=== PATIENT | male | born 1940 | race Caucasian/White ===

== ENCOUNTER 2017-01-29 13:19 | Outpatient (CLI) | payer MEDICARE, OTHER ==
--- NOTE | 2017-01-29 17:02 | XRAY Report ---
LEFT HIP AND PELVIS: 01/29/2017 COMPARISON STUDY: Hip 12/27/2014. INDICATION: Chronic left hip pain. TECHNIQUE: Three views of the pelvis and left hip. FINDINGS: Normal alignment. No evidence of acute fracture. No appreciable degenerative changes. IMPRESSION: NEGATIVE LEFT HIP. JOB #: [id number] EXT JOB #:[id number]
== END 2017-01-29 13:20 | disposition home or self-care (01) ==
LOC: DI 13:19
PROVIDERS: ATTEND Family Medicine
DX: M25.552 Pain in left hip (principal)

== ENCOUNTER 2017-05-31 11:48 | Outpatient (CLI) | payer MEDICARE | END 2017-05-31 11:49 | disposition critical access hospital (66) | LOC: EMS 11:48 | PROVIDERS: ATTEND Surgery | DX: R55 Syncope and collapse (principal); R42 Dizziness and giddiness; R11.2 Nausea with vomiting, unspecified; R53.1 Weakness | CPT/HCPCS: A0425; A0427 ==

== ENCOUNTER 2017-05-31 12:01 | Emergency (ER) | payer MEDICARE ==
[2017-05-31 13:07] VITALS: BP 138/80
--- NOTE | 2017-05-31 13:12 | ED Physician Documentation ---
PD HPI SYNCOPE - Stated complaint Stated Complaint: Syncope - Chief complaint Chief Complaint: Neuro - History obtained from History obtained from: Patient - History of Present Illness Witnessed: Witnessed Timing - onset: Today Duration: Seconds Preceding symptoms: Light headed. No: Headache, Chest pain Associated symptoms: Headache. No: Chest pain, Nausea / vomiting, Abdominal pain Contributing factors: Just stood up (he felt okay wakening and getting up, doing activities. he was out working in [employer] and when he stood up from working bending over, he felt lightheaded and then fell/fainted forward.) Injury occurred: Fell, Head injury, Neck injury, Other (chest pain to palpation) Similar symptoms before: Has not had sx before Recently seen: Not recently seen Review of Systems Constitutional: denies: Fever, Chills Nose: denies: Rhinorrhea / runny nose, Congestion Throat: denies: Sore throat Cardiac: reports: Chest pain / pressure (after falling, anteriorly). denies: Palpitations Respiratory: denies: Cough GI: denies: Abdominal Pain, Nausea, Vomiting Musculoskeletal: reports: Neck pain. denies: Back pain, Extremity pain Neurologic: reports: Headache PD PAST MEDICAL HISTORY - Past Medical History Cardiovascular: Hypertension, High cholesterol, Coronary artery disease Respiratory: Pneumonia Neuro: Fainting, Other Endocrine/Autoimmune: None GI: GERD : Retention, Frequency HEENT: Chronic vision loss Psych: Bipolar disorder Musculoskeletal: Osteoarthritis Derm: Other - Past Surgical History Past Surgical History: Yes General: Colonoscopy Ortho: Other Cardiovascular: CABG HEENT: Tonsil/Adenoidectomy - Present Medications Home Medications: Ambulatory Orders Medication Instructions Recorded Confirmed Aspirin Chewable [[place] Branden 81 mg PO DAILY 05/02/13 01/12/14 Aspirin] Atorvastatin [Lovastatin] 40 mg PO DAILY 05/02/13 01/12/14 Folic Acid 1 mg PO DAILY 05/02/13 01/12/14 Lisinopril [Zestril] 10 mg PO DAILY 05/02/13 01/12/14 Omeprazole [PriLOSEC] 20 mg PO DAILY 05/02/13 01/12/14 Tamsulosin [Flomax] 0.4 mg PO DAILY 05/02/13 01/12/14 Escitalopram Oxalate 20 mg PO DAILY 11/06/13 01/12/14 Ibuprofen 600 mg PO BID #20 tablet 11/06/13 01/12/14 - Allergies Allergies/Adverse Reactions: Allergies Allergy/AdvReac Type Severity Reaction Status Date / Time codeine Allergy Unknown Verified 05/31/17 12:12 - Social History Does the pt smoke?: No Smoking Status: Never smoker Does the pt drink ETOH?: Yes Does the pt have substance abuse?: No Substance Use and Type: Marijuana - Immunizations Immunizations are current?: Yes - POLST Patient has POLST: No PD ED PE NORMAL - Vitals Vital signs reviewed: Yes - General General: Alert and oriented X 3, No acute distress - HEENT HEENT: PERRL - Neck Neck: Supple, no meningeal sign - Cardiac Cardiac: RRR, No murmur - Respiratory Respiratory: Clear bilaterally - Abdomen Abdomen: Normal bowel sounds, Soft, Non tender, Non distended - Back Back: No CVA TTP, No spinal TTP - Derm Derm: Warm and dry - Extremities Extremities: No deformity, No tenderness to palpate, Normal ROM s pain - Neuro Neuro: Alert and oriented X 3, No motor deficit, Normal speech Eye Opening: Spontaneous Motor: Obeys Commands Verbal: Oriented GCS Score: 15 - Psych Psych: Normal mood, Normal affect Results - Vitals Vitals: Oxygen O2 Source Room air - Labs Labs: Laboratory Tests 05/31/17 05/31/17 05/31/17 14:41 14:41 14:41 WBC 9.9 RBC 4.44 L Hgb 13.6 L Hct 40.0 L MCV 90.0 MCH 30.7 MCHC 34.1 RDW 12.8 Plt Count 186 MPV 8.6 Neut # 8.2 H Lymph # 1.0 L [place] # 0.6 Eos # 0.0 Baso # 0.0 Absolute Nucleated RBC 0.00 Nucleated RBC % 0.0 Sodium 139 Potassium 4.0 Chloride 110 Carbon Dioxide 23 Anion Gap 6.0 BUN 15 Creatinine 1.4 H Estimated GFR (MDRD) 49 L Glucose 120 H Calcium 9.1 Magnesium 2.0 Total Bilirubin 0.9 AST 21 ALT 15 Alkaline Phosphatase 81 Troponin I < 0.04 Total Protein 6.2 L Albumin 3.8 Globulin 2.4 Albumin/Globulin Ratio 1.6 Lipase 43 - Rads (name of study) head and neck CTs Radiology: Prelim report reviewed (no acute fracture/abnormal) cest xray Radiology: Prelim report reviewed (no obvious deformity nor wilson injury. ) PD MEDICAL DECISION MAKING - ED course Complexity details: reviewed results, considered differential, d/w patient, d/w family Departure - Departure Disposition: 01 Home, Self Care Clinical Impression: Episode of syncope Qualifiers: Syncope type: unspecified Qualified Code(s): R55 - Syncope and collapse Head contusion Qualifiers: Encounter type: initial encounter Contusion of head detail: scalp Qualified Code(s): S00.03XA - Contusion of scalp, initial encounter Neck strain Qualifiers: Encounter type: initial encounter Qualified Code(s): S16.1XXA - Strain of muscle, fascia and tendon at neck level, initial encounter Condition: Stable Record reviewed to determine appropriate education?: Yes Instructions: ED Sprain Strain Neck, ED Fainting Unkn Cause Comments: There are no signs of obvious bad processes going on at this time. Presume you had a transient drop in blood pressure when he stood up in the garden. Drink lots of fluids and continue usual medications. Tylenol or ibuprofen if needed for pains in the neck. Recheck if recurrent episodes or other symptoms. Discharge Date/Time: 05/31/17 15:45
[2017-05-31] MEDS ORDERED: KETOROLAC 60 MG/2 ML VIAL IVP STA (13:30)
[2017-05-31] MEDS ORDERED: SODIUM CHLORIDE 0.9% 500 ML IV ONE (13:30)
--- NOTE | 2017-05-31 14:31 | CT Report ---
EXAM: CT HEAD EXAM DATE: 05/31/2017 02:14 PM. CLINICAL HISTORY: Fall and struck head. COMPARISON: 11/23/2013. TECHNIQUE: Multiaxial CT images were obtained from the foramen magnum to the vertex. Reformats: Coron al. IV contrast: None. In accordance with CT protocol optimization, one or more of the following dose reduction techniques w ere utilized for this exam: automated exposure control, adjustment of mA and/or KV based on patient s ize, or use of iterative reconstructive technique. FINDINGS: Parenchyma: No intraparenchymal hemorrhage. No evidence of mass, midline shift, or CT findings of inf arction. Maldonado-white differentiation is distinct. Punctate focus of hyperdensity in the mario is unchan ged. Extraaxial Spaces: Normal for age. No subdural or epidural collections identified. Ventricles: Normal in size and position. Sinuses and Orbits: Imaged paranasal sinuses, orbits, and mastoids show no significant abnormality. Bones: No evidence of fracture or calvarial defect. Other: None. IMPRESSION: No acute intracranial abnormality. [facility] Referring Provider Line: [phone] SITE ID: [id number]
--- NOTE | 2017-05-31 14:38 | CT Report ---
EXAM: CT CERVICAL SPINE WITHOUT CONTRAST DATE: 05/31/2017 02:19 PM. HISTORY: Fell with neck pain. COMPARISONS: 10/24/2007. TECHNIQUE: Thin-section axial images were acquired of the cervical spine without contrast. Post-proce ssing: Coronal and sagittal reformats. Other: None. In accordance with CT protocol optimization, one or more of the following dose reduction techniques w ere utilized for this exam: automated exposure control, adjustment of mA and/or KV based on patient s ize, or use of iterative reconstructive technique. FINDINGS: Alignment: No scoliosis or spondylolisthesis. Bones: No fracture or bone lesion. Interspace Levels/Facets: Severe C4-C5, C5-C6 and C6-C7 disk degeneration with prominent endplate osteophyte formation resultin g in at least moderate spinal canal stenosis at these levels. Severe neural foraminal stenosis at C4- C5 and C5-C6. Prominent anterior osteophytes with evidence of ankylosis. Musculature: Mild fatty atrophy. Other: The paravertebral and prevertebral soft tissues are unremarkable. The lung apices are clear. IMPRESSION: 1. No acute fracture identified. 2. Severe C4-C5, C5-C6 and C6-C7 degenerative changes with prominent osteophytes and ankylosis. MRI c ould be considered if there is high suspicion for occult fracture or new neurologic symptoms. [facility] Referring Provider Line: [phone] SITE ID: [id number]
--- NOTE | 2017-05-31 14:39 | XRAY Report ---
EXAM: CHEST RADIOGRAPHY EXAM DATE: 05/31/2017 02:26 PM. CLINICAL HISTORY: Chest pain left sided. Cough. COMPARISON: 06/20/2014. TECHNIQUE: 2 views. FINDINGS: Lungs/Pleura: No focal opacities evident. No pleural effusion. Resolution of left pleural effusion se en before. No pneumothorax. Normal volumes. Mediastinum: Heart and mediastinal contours are unremarkable. Mild aortic arch calcification. Sternot dawson wires, as before. 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 IMPRESSION: 1. Uncertain clear. 2. Heart size normal. Prior CABG. [facility] Referring Provider Line: [phone] SITE ID: [id number]
[2017-05-31 14:53] LABS: BASOPHILS % (AUTO) 0.3 %; EOSINOPHILS % (AUTO) 0.3 %; HGB - HEMOGLOBIN 13.6 g/dL (14.0-18.0); LYMPHOCYTES % (AUTO) 10.3 %; MEAN CORPUSCULAR HEMOGLOBIN 30.7 pg (27.0-31.0); MEAN CORPUSCULAR HGB CONC 34.1 g/dL (32.0-36.0); MEAN PLATELET VOLUME 8.6 fL (7.4-11.4); MONOCYTES # (AUTO) 0.6 10^3/uL (0.0-1.0); MONOCYTES % (AUTO) 6.3 %; NEUTROPHILS # (AUTO) 8.2 10^3/uL (1.5-6.6); NEUTROPHILS % (AUTO) 82.8 %; PLT - PLATELET COUNT 186 10^3/uL (130-450); RED BLOOD COUNT 4.44 10^6/uL (4.70-6.10); RED CELL DISTRIBUTION WIDTH 12.8 % (12.0-15.0); WHITE BLOOD COUNT 9.9 x10^3/uL (4.8-10.8)
[2017-05-31 15:02] LABS: ALBUMIN 3.8 g/dL (3.2-5.5); ALBUMIN/GLOBULIN RATIO 1.6 (1.0-2.2); BILIRUBIN,TOTAL 0.9 mg/dL (0.2-1.0); CALCIUM 9.1 mg/dL (8.5-10.3); CREATININE 1.4 mg/dL (0.6-1.2); TOTAL PROTEIN 6.2 g/dL (6.7-8.2)
== END 2017-05-31 15:45 | disposition home or self-care (01) ==
LOC: EDUNIT# → SUPCPDRO 12:01 → ED 12:01
DX: R55 Syncope and collapse (principal); S00.03XA Contusion of scalp, initial encounter; S16.1XXA Strain of muscle, fascia and tendon at neck level, initial encounter; I10 Essential (primary) hypertension; I25.10 Atherosclerotic heart disease of native coronary artery without angina pectoris; Z79.82 Long term (current) use of aspirin; E78.00 Pure hypercholesterolemia, unspecified; Z95.1 Presence of aortocoronary bypass graft; W18.39XA Other fall on same level, initial encounter; Y93.H2 Activity, gardening and landscaping
CPT/HCPCS: 36415; 70450; 71046; 72125; 80053; 83690; 83735; 84484; 85025; 93005; 96374; 99284

== ENCOUNTER 2017-09-29 08:25 | Outpatient (CLI) | payer MEDICARE ==
--- NOTE | 2017-09-29 13:55 | Ultrasound Report ---
Procedure Date: 09/29/2017 Accession Number: [id number] / [id number] Procedure: US - Carotid Doppler Complete CPT Code: FULL RESULT: EXAM: BILATERAL CAROTID AND VERTEBRAL ARTERY DUPLEX DOPPLER ULTRASOUND: EXAM DATE: 09/29/2017 09:23 AM CLINICAL HISTORY: Dizziness, B sensorineural hearing loss, cerebrovascular insufficiency. COMPARISON: 10/28/2010. TECHNIQUE: Grayscale imaging, color Doppler, and duplex spectral Doppler were used to evaluate the carotid and vertebral arteries bilaterally. Static images were obtained. FINDINGS: No significant plaque is identified in the right or left common or internal carotid arteries. Normal antegrade flow is present in bilateral vertebral arteries. VELOCITIES (cm/sec): Right: RCCA Prox: PSV 72 cm/sec. RCCA Dist: PSV 49 cm/sec, EDV 10 cm/sec. RECA: PSV 73 cm/sec. R Bulb: PSV 37 cm/sec, EDV 8 cm/sec, ICA/CCA ratio 0.76. GLENIS Prox: PSV 56 cm/sec, EDV 14 cm/sec, ICA/CCA ratio 1.14. GLENIS Mid: PSV 45 cm/sec, EDV 11 cm/sec, ICA/CCA ratio 0.92. GLENIS Dist: PSV 62 cm/sec, EDV 21 cm/sec, ICA/CCA ratio 1.27. RVA: PSV 28 cm/sec. RVA flow direction: Antegrade. Left: LCCA Prox: PSV 72 cm/sec. LCCA Dist: PSV 43 cm/sec, EDV 9 cm/sec. LECA: PSV 94 cm/sec. L Bulb: PSV 39 cm/sec, EDV 8 cm/sec, ICA/CCA ratio 0.91. LICA Prox: PSV 36 cm/sec, EDV 10 cm/sec, ICA/CCA ratio 0.84. LICA Mid: PSV 59 cm/sec, EDV 16 cm/sec, ICA/CCA ratio 1.37. LICA Dist: PSV 60 cm/sec, EDV 20 cm/sec, ICA/CCA ratio 1.40. LVA: PSV 45 cm/sec. LVA flow direction: Antegrade. ICA diameter stenosis: Right: <50% by velocity and <70% by NASCET criteria. Left: <50% by velocity and <70% by NASCET criteria. IMPRESSION: 1. No significant bilateral carotid artery plaquing. 2. In the right carotid artery there are no elevated carotid artery velocities to suggest hemodynamically significant stenosis. 3. In the left carotid artery there are no elevated carotid artery velocities to suggest hemodynamically significant stenosis. 4. Normal antegrade flow is present in bilateral vertebral arteries. General Recommendations: Stenosis =50% ICA - Follow-up ultrasound 6-12 months Stenosis <50% ICA - High Risk Patient with plaque - Follow-up ultrasound 1-2 years Normal Study but High Risk Patient - Follow-up ultrasound 3-5 years Management recommendations and diagnostic criteria are based on current IAC endorsed standards in Carotid Artery Stenosis: Grayscale and Doppler Ultrasound Diagnosis. Validated velocity measurements with angiographic measurements and velocity criteria are extrapolated from diameter data as defined by the Society of Radiologists in Ultrasound Consensus Conference Radiology 2003; 229;340-346. [facility]
--- NOTE | 2017-09-29 15:59 | MRI Report ---
Procedure Date: 09/29/2017 Accession Number: [id number] / [id number] Procedure: MRI - Angio Brain W/O (MRA) CPT Code: FULL RESULT: EXAM MRA BRAIN EXAM DATE: 09/29/2017 10:55 AM. CLINICAL HISTORY: Dizziness, B sensorineural hearing loss, cerebrovascular insufficiency. COMPARISON: CT head 05/31/2017. Carotid ultrasound report 10/28/2010. TECHNIQUE: Multiplanar, multisequence MRA sequences of the brain were performed. Other: None. Post-processing: Multiplanar 3D MIP reconstructions. IV Contrast: None. FINDINGS: No hemodynamically significant stenosis is seen in the posterior circulation. Artifact limits assessment of the anterior circulation. No hemodynamically significant stenosis is definitely identified in the anterior circulation. No outpouching of flow-related enhancement is seen to suggest an aneurysm. IMPRESSION: 1. No hemodynamically significant stenosis is seen in the posterior circulation. 2. Accounting for artifact, no definite hemodynamically significant stenosis is present in the anterior circulation [facility]
== END 2017-09-29 08:26 | disposition home or self-care (01) ==
LOC: DI 08:25
PROVIDERS: ATTEND Otolaryngology
DX: R42 Dizziness and giddiness (principal); H90.3 Sensorineural hearing loss, bilateral; I67.81 Acute cerebrovascular insufficiency
CPT/HCPCS: 70544; 93880

== ENCOUNTER 2018-11-16 09:39 | Outpatient (CLI) | payer MEDICARE ==
[2018-11-16 10:09] LABS: BASOPHILS % (AUTO) 0.2 %; EOSINOPHILS # (AUTO) 0.1 10^3/uL (0.0-0.7); HGB - HEMOGLOBIN 12.8 g/dL (14.0-18.0); LYMPHOCYTES # (AUTO) 1.4 10^3/uL (1.5-3.5); LYMPHOCYTES % (AUTO) 22.8 %; MEAN CORPUSCULAR HEMOGLOBIN 29.8 pg (27.0-31.0); MEAN CORPUSCULAR HGB CONC 31.8 g/dL (32.0-36.0); MEAN CORPUSCULAR VOLUME 93.7 fL (80.0-94.0); MEAN PLATELET VOLUME 10.3 fL (7.4-11.4); MONOCYTES # (AUTO) 0.6 10^3/uL (0.0-1.0); MONOCYTES % (AUTO) 9.8 %; NEUTROPHILS # (AUTO) 3.9 10^3/uL (1.5-6.6); PLT - PLATELET COUNT 161 10^3/uL (130-450); RED CELL DISTRIBUTION WIDTH 13.4 % (12.0-15.0)
[2018-11-16 10:20] LABS: ALBUMIN 4.1 g/dL (3.2-5.5); BILIRUBIN,DIRECT 0.1 mg/dL (0.1-0.5); BILIRUBIN,TOTAL 0.8 mg/dL (0.2-1.0); CREATININE 1.7 mg/dL (0.6-1.2); TOTAL PROTEIN 6.8 g/dL (6.7-8.2)
[2018-11-16 10:21] LABS: CHOL/HDL RATIO 2.7 (<5.0); CHOLESTEROL 143 mg/dL; HDL CHOLESTEROL 53 mg/dL; LDL CHOLESTEROL,CALCULATED 80 mg/dL; LDL/HDL RATIO 1.5 (<3.6); VLDL CHOLESTEROL 10 mg/dL
== END 2018-11-16 09:40 | disposition home or self-care (01) ==
LOC: LAB 09:39
PROVIDERS: ATTEND Internal Medicine Cardiovascular Disease
DX: B35.1 Tinea unguium (principal); I10 Essential (primary) hypertension
CPT/HCPCS: 36415; 80061; 80076; 82565; 83721; 84520; 85025

== ENCOUNTER 2018-12-16 08:00 | Outpatient (CLI) | payer MEDICARE | END 2018-12-16 08:01 | disposition home or self-care (01) | LOC: LAB.N 08:00 | PROVIDERS: ATTEND Family Medicine Sports Medicine | DX: Z53.9 Procedure and treatment not carried out, unspecified reason (principal) | CPT/HCPCS: 36415; 85025 ==

== ENCOUNTER 2018-12-19 08:00 | Outpatient (CLI) | payer MEDICARE ==
[2018-12-19 11:50] LABS: BASOPHILS % (AUTO) 0.7 %; EOSINOPHILS # (AUTO) 0.1 10^3/uL (0.0-0.7); EOSINOPHILS % (AUTO) 2.3 %; HGB - HEMOGLOBIN 13.1 g/dL (14.0-18.0); LYMPHOCYTES % (AUTO) 34.5 %; MEAN CORPUSCULAR HGB CONC 31.2 g/dL (32.0-36.0); MEAN CORPUSCULAR VOLUME 93.1 fL (80.0-94.0); MONOCYTES # (AUTO) 0.5 10^3/uL (0.0-1.0); MONOCYTES % (AUTO) 9.6 %; NEUTROPHILS % (AUTO) 52.5 %; PLT - PLATELET COUNT 196 10^3/uL (130-450); RED BLOOD COUNT 4.51 10^6/uL (4.70-6.10); RED CELL DISTRIBUTION WIDTH 13.2 % (12.0-15.0); WHITE BLOOD COUNT 5.7 x10^3/uL (4.8-10.8)
[2018-12-19 12:18] LABS: ALBUMIN 4.1 g/dL (3.2-5.5); CALCIUM 9.1 mg/dL (8.5-10.3); CREATININE 1.8 mg/dL (0.6-1.2); PHOSPHORUS 3.2 mg/dL (2.5-4.6)
== END 2018-12-19 23:59 | disposition home or self-care (01) ==
LOC: LAB.N 08:00
PROVIDERS: ATTEND Family Medicine Sports Medicine
DX: N18.3 Chronic kidney disease, stage 3 (moderate) (principal)
CPT/HCPCS: 36415; 80069; 85025

== ENCOUNTER 2019-04-25 08:22 | Outpatient (CLI) | payer MEDICARE ==
[2019-04-25 09:09] LABS: ALBUMIN 4.2 g/dL (3.2-5.5); ALBUMIN/GLOBULIN RATIO 1.6 (1.0-2.2); BILIRUBIN,TOTAL 0.8 mg/dL (0.2-1.0); CALCIUM 8.9 mg/dL (8.5-10.3); CREATININE 1.7 mg/dL (0.6-1.2); TOTAL PROTEIN 6.9 g/dL (6.7-8.2)
== END 2019-04-25 08:23 | disposition home or self-care (01) ==
LOC: LAB 08:22
PROVIDERS: ATTEND Internal Medicine
DX: I25.10 Atherosclerotic heart disease of native coronary artery without angina pectoris (principal); E21.3 Hyperparathyroidism, unspecified
CPT/HCPCS: 36415; 80053

== ENCOUNTER 2019-05-31 10:00 | Outpatient (CLI) | payer MEDICARE ==
--- NOTE | 2019-06-01 14:38 | Ultrasound Report ---
Reason: PROTEINURIA,CHRONIC KIDNEY DISEASY Procedure Date: 05/31/2019 Accession Number: [id number] / [id number] Procedure: US - Retroperitoneal CPT Code: Final Report FULL RESULT: EXAM: RENAL ULTRASOUND EXAM DATE: 05/31/2019 10:39 AM. CLINICAL HISTORY: PROTEINURIA, CHRONIC KIDNEY DISEASE. COMPARISON: None. TECHNIQUE: Real-time scanning was performed with static images obtained. FINDINGS: Diffusely echogenic bilateral renal parenchyma without evidence for focal mass. Right Kidney: 11.8 x 5.3 x 4.2 cm. No stones, contour-deforming masses, or hydronephrosis. A tiny 0.7 cm right lower renal cyst. Left Kidney: 10.7 x 5.2 x 4.3 cm. No stones, contour-deforming masses, or hydronephrosis. 0.8 cm left upper renal cyst. Extrarenal pelvis. Bladder: Bilateral jets seen. The prevoid bladder volume was 114 cc. The postvoid bladder volume was 8 cc. Other: 41 cc prostate gland. IMPRESSION: 1. Diffusely echogenic bilateral renal parenchyma compatible with medical renal disease. 2. No hydronephrosis. [facility]
== END 2019-05-31 10:01 | disposition home or self-care (01) ==
LOC: DI 10:00
PROVIDERS: ATTEND Internal Medicine Nephrology
DX: N18.9 Chronic kidney disease, unspecified (principal); R80.9 Proteinuria, unspecified
CPT/HCPCS: 76770

== ENCOUNTER 2019-08-16 16:28 | Outpatient (CLI) | payer MEDICARE ==
[2019-08-16 16:56] LABS: CALCIUM 9.1 mg/dL (8.5-10.3); CREATININE 2.1 mg/dL (0.6-1.2)
== END 2019-08-16 16:29 | disposition home or self-care (01) ==
LOC: LAB 16:28
PROVIDERS: ATTEND Nurse Practitioner
DX: I12.9 Hypertensive chronic kidney disease with stage 1 through stage 4 chronic kidney disease, or unspecified chronic kidney disease (principal); N18.3 Chronic kidney disease, stage 3 (moderate)
CPT/HCPCS: 36415; 80048

== ENCOUNTER 2019-10-11 15:52 | Outpatient (CLI) | payer MEDICARE | END 2019-10-11 23:59 | disposition critical access hospital (66) | LOC: EMS 15:52 | PROVIDERS: ATTEND Surgery | DX: I46.9 Cardiac arrest, cause unspecified (principal) | CPT/HCPCS: A0425; A0433 ==

== ENCOUNTER 2019-10-11 16:12 | Emergency (ER) | payer MEDICARE ==
[2019-10-11] MEDS ORDERED: CALCIUM CHLORIDE ABBOJECT 1000MG/10 ML SYRINGE IVP STA (16:21)
[2019-10-11] MEDS ORDERED: EPINEPHrine ABBOJECT 1 MG/10 ML SYRINGE IVP STA (16:21)
[2019-10-11] MEDS ORDERED: SODIUM BICARBONATE ABBOJECT 50 MEQ/50 ML SYRINGE IVP STA (16:21)
[2019-10-11] MEDS ORDERED: AMIODARONE 150 MG/3 ML VIAL IVP STA (16:21)
--- NOTE | 2019-10-11 16:22 | ED Physician Documentation ---
PD HPI CPR - Stated complaint Stated Complaint: CPR - History obtained from History obtained from: EMS - Additional information Additional information: 79-year-old gentleman with history of two-vessel coronary bypass in 2007 and chronic renal insufficiency was out and about with his significant other, reportedly clutched his chest and then collapsed. Found to be in V. fib and had reportedly good bystander CPR. On arrival he has been shocked 8 times, had a commensurate amount of Epinephrine and also dose of lidocaine with no return of spontaneous circulation.He was intubated and has an IV placed prior to arrival. Review of Systems Unable to obtain: Intubated PD PAST MEDICAL HISTORY - Past Medical History Cardiovascular: Hypertension, High cholesterol, Coronary artery disease Respiratory: Pneumonia Endocrine/Autoimmune: None GI: GERD : Retention, Frequency HEENT: Chronic vision loss Psych: Bipolar disorder Musculoskeletal: Osteoarthritis Derm: Other - Past Surgical History Past Surgical History: Yes General: Colonoscopy Ortho: Other Cardiovascular: CABG HEENT: Tonsil/Adenoidectomy - Present Medications Home Medications: Ambulatory Orders Medication Instructions Recorded Confirmed Aspirin Chewable [St Branden 81 mg PO DAILY 05/02/13 01/12/14 Aspirin] Atorvastatin [Lovastatin] 40 mg PO DAILY 05/02/13 01/12/14 Folic Acid 1 mg PO DAILY 05/02/13 01/12/14 Omeprazole [PriLOSEC] 20 mg PO DAILY 05/02/13 01/12/14 Tamsulosin [Flomax] 0.4 mg PO DAILY 05/02/13 01/12/14 lisinopriL [Zestril] 10 mg PO DAILY 05/02/13 01/12/14 Escitalopram Oxalate 20 mg PO DAILY 11/06/13 01/12/14 Ibuprofen 600 mg PO BID #20 tablet 11/06/13 01/12/14 - Allergies Allergies/Adverse Reactions: Allergies Allergy/AdvReac Type Severity Reaction Status Date / Time codeine Allergy Unknown Verified 05/31/17 12:12 - Social History Does the pt smoke?: No Smoking Status: Never smoker Does the pt drink ETOH?: Yes Does the pt have substance abuse?: No - Immunizations Immunizations are current?: Yes - POLST Patient has POLST: No PD ED PE NORMAL - Vitals Vital signs reviewed: Yes - General General: Other (He has an endotracheal tube in place, there are no spontaneous signs of life.) - HEENT HEENT: Other (Fixed and dilated) - Cardiac Cardiac: Other (No cardiac motion on sono and no pulse at any time in the depar tment) - Respiratory Respiratory: Clear bilaterally - Extremities Extremities: No edema Results - Vitals Vitals: Vital Signs - 24 hr 10/11/19 16:28 Heart Rate 0 L Respiratory 0 L Rate Oxygen O2 Source Room air PD MEDICAL DECISION MAKING - ED course ED course: On arrival he is in V. fib. He received more epinephrine. Noting that he has a history of renal insufficiency he received calcium and bicarb. We were preparing to do double synchronous defibrillation, but on that pulse check he was in a slow wide-complex agonal rhythm and given the extended downtime of about an hour at that point the code was called. Departure - Departure Disposition: 20 Clinical Impression: Sudden cardiac Discharge Date/Time: 10/11/19 17:30
== END 2019-10-11 17:30 | disposition expired ==
LOC: EDBD → EDUNIT# → ED 16:12
DX: I49.01 Ventricular fibrillation (principal); I25.10 Atherosclerotic heart disease of native coronary artery without angina pectoris; I12.9 Hypertensive chronic kidney disease with stage 1 through stage 4 chronic kidney disease, or unspecified chronic kidney disease; N18.9 Chronic kidney disease, unspecified; Z95.1 Presence of aortocoronary bypass graft
CPT/HCPCS: 96374; 96375; 99281